=== PATIENT | female | born 1980 | race Hispanic/Latino ===

== ENCOUNTER 2017-10-31 21:33 | Inpatient (IN) | payer BC ==
[~2017-10-31] VITALS: Ht 162.6 cm; Wt 63.5 kg
[~2017-10-31 21:33] MED LIST: SANCTURA XR60 MG PO; TRAMADOL HCL50 MG PO
[2017-11-01 10:46] VITALS: BP 110/74
[2017-11-01 17:14] VITALS: BP 114/75
[2017-11-01 19:05] VITALS: BP 112/69
[2017-11-01 19:40] LABS: HEMATOCRIT 29.3 % (36.0-46.0); HEMOGLOBIN 9.5 G/DL (11.9-15.5); MCH 26.8 PG (29.0-34.0); MCHC 32.4 G/DL (30.0-36.0); MCV 82.5 FL (83-99); PLATELET COUNT 256 K/uL (156-360); RBC DIS.WIDTH-CV 17.4 % (11.8-14.6); RBC DIS.WIDTH-SD 52.8 % (39-53); RED BLOOD COUNT 3.55 M/uL (3.80-5.20); WHITE BLOOD COUNT 12.1 K/uL (4.1-10.2)
[2017-11-01 20:05] LABS: CHLORIDE 103 MEQ/L (99-109); CREATININE 0.4 MG/DL (0.6-1.3); GFR ESTIMATE (CALCULATED) > 59 mL/min/; GLUCOSE 146 mg/dL (70-99); POTASSIUM 3.4 MEQ/L (3.7-5.4); SODIUM 134 MEQ/L (136-147); UREA NITROGEN (BUN) 7 mg/dL (9-23)
[2017-11-01 23:15] VITALS: BP 110/75
[2017-11-02 03:35] VITALS: BP 119/66
[2017-11-02 06:30] LABS: HEMOGLOBIN 9.1 G/DL (11.9-15.5); MCH 26.2 PG (29.0-34.0); MCHC 31.4 G/DL (30.0-36.0); MCV 83.6 FL (83-99); PLATELET COUNT 252 K/uL (156-360); RBC DIS.WIDTH-CV 17.4 % (11.8-14.6); RBC DIS.WIDTH-SD 53.3 % (39-53); RED BLOOD COUNT 3.47 M/uL (3.80-5.20); WHITE BLOOD COUNT 8.6 K/uL (4.1-10.2)
[2017-11-02 06:55] LABS: CHLORIDE 102 MEQ/L (99-109); CREATININE 0.5 MG/DL (0.6-1.3); GFR ESTIMATE (CALCULATED) > 59 mL/min/; GLUCOSE 141 mg/dL (70-99); POTASSIUM 3.5 MEQ/L (3.7-5.4); SODIUM 137 MEQ/L (136-147); UREA NITROGEN (BUN) 5 mg/dL (9-23)
[2017-11-02 07:23] VITALS: BP 111/69
[2017-11-02 11:32] VITALS: BP 120/71
[2017-11-02 15:35] VITALS: BP 114/71
[2017-11-02 19:10] VITALS: BP 120/70
[2017-11-02 23:30] VITALS: BP 112/60
[2017-11-03 03:30] VITALS: BP 102/56
[2017-11-03 06:15] LABS: HEMATOCRIT 25.4 % (36.0-46.0); HEMOGLOBIN 8.1 G/DL (11.9-15.5); MCH 26.9 PG (29.0-34.0); MCHC 31.9 G/DL (30.0-36.0); MCV 84.4 FL (83-99); PLATELET COUNT 251 K/uL (156-360); RBC DIS.WIDTH-CV 17.9 % (11.8-14.6); RED BLOOD COUNT 3.01 M/uL (3.80-5.20); WHITE BLOOD COUNT 8.8 K/uL (4.1-10.2)
[2017-11-03 06:42] LABS: CHLORIDE 106 MEQ/L (99-109); CREATININE 0.5 MG/DL (0.6-1.3); GFR ESTIMATE (CALCULATED) > 59 mL/min/; POTASSIUM 3.3 MEQ/L (3.7-5.4); SODIUM 139 MEQ/L (136-147); UREA NITROGEN (BUN) 6 mg/dL (9-23)
[2017-11-03 06:47] LABS: GLUCOSE 103 mg/dL (70-99)
[2017-11-03 07:16] VITALS: BP 101/61
[2017-11-03 15:17] VITALS: BP 107/63
[2017-11-03 20:20] VITALS: BP 112/77
[2017-11-04 00:11] VITALS: BP 104/71
[2017-11-04 06:36] LABS: HEMATOCRIT 25.5 % (36.0-46.0); MCH 26.2 PG (29.0-34.0); MCHC 31.4 G/DL (30.0-36.0); MCV 83.6 FL (83-99); PLATELET COUNT 259 K/uL (156-360); RBC DIS.WIDTH-CV 17.9 % (11.8-14.6); RBC DIS.WIDTH-SD 54.6 % (39-53); RED BLOOD COUNT 3.05 M/uL (3.80-5.20); WHITE BLOOD COUNT 7.2 K/uL (4.1-10.2)
[2017-11-04 06:59] LABS: CHLORIDE 107 MEQ/L (99-109); CREATININE 0.5 MG/DL (0.6-1.3); GFR ESTIMATE (CALCULATED) > 59 mL/min/; GLUCOSE 95 mg/dL (70-99); POTASSIUM 3.6 MEQ/L (3.7-5.4); SODIUM 140 MEQ/L (136-147); UREA NITROGEN (BUN) 7 mg/dL (9-23)
[2017-11-04 08:34] VITALS: BP 95/63
[2017-11-04] MEDS ORDERED: TRAMADOL HCL50 MG PO (09:17)
== END 2017-11-04 12:40 | disposition home or self-care (01) | DRG 743 ==
LOC: ENRESERV 21:33 → 2SOUTH 11-01 09:26 → 2EAST 11-01 09:52 → 2SOUTH 11-01 14:43 → 2EAST 11-01 16:50
PROVIDERS: Obstetrics & Gynecology Gynecologic Oncology
DX: D25.9 Leiomyoma of uterus, unspecified (principal); N80.3 Endometriosis of pelvic peritoneum; N80.5 Endometriosis of intestine; N80.0 Endometriosis of uterus; N93.8 Other specified abnormal uterine and vaginal bleeding; N32.81 Overactive bladder; R33.9 Retention of urine, unspecified
CPT/HCPCS: 36415; 80048; 85027; 86850; 86900; 86901; 86920; 88304; 88305; 88307; J0131; J0690; J1100; J1170; J1650; J1885; J2250; J2405; J2710; J2765; J3010; J7643; Q0175